=== PATIENT | male | born 1995 | race Caucasian/White ===

== ENCOUNTER 2017-05-19 00:03 | Emergency (ER) | payer OTHER ==
[2017-05-19 00:08] VITALS: RESP 20; TEMP 98.1
--- NOTE | 2017-05-19 01:03 | XR ---
EXAMINATION TYPE: XR chest 2V DATE OF EXAM: 05/19/2017 COMPARISON: NONE HISTORY: Cough TECHNIQUE: Frontal and lateral views of the chest are obtained. FINDINGS: Heart and mediastinum are normal. Lungs are clear. Diaphragm is normal. Bony thorax is int act. IMPRESSION: Normal chest
--- NOTE | 2017-05-19 01:25 | ED ---
General Adult HPI - General Chief complaint: Chest Pain Stated complaint: Chest Pain Time Seen by Provider: 05/19/17 00:31 Source: patient, RN notes reviewed Mode of arrival: wheelchair Limitations: no limitations - History of Present Illness Initial comments: 21 yo male presents to the ER with cc of left sided palpitations. He states that he felt two palpitations and he then went into a panic attack. He was concerned so he thought he should be seen. NO nausea or vomiting. NO SOB. NO fever or chills. He denies any long trips or travel, no hx of blood clots, no other health history. Patient states he is feeling better at this time. He states the feeling of the palpitation have resolved. Patient denies any recent fever, chills, shortness of breath, chest pain, back pain, abdominal pain, nausea vomiting, numbness or tingling, dysuria or hematuria, constipation or diarrhea, headaches or visual changes, or any other current symptoms. - Related Data Home Medications Medication Instructions Recorded Confirmed No Known Home Medications [No 07/02/14 07/02/14 Known Home Medications] Allergies Allergy/AdvReac Type Severity Reaction Status Date / Time No Known Allergies Allergy Verified 05/19/17 00:08 Review of Systems ROS Statement: Those systems with pertinent positive or pertinent negative responses have been documented in the HPI. ROS Other: All systems not noted in ROS Statement are negative. Past Medical History Past Medical History: No Reported History History of Any Multi-Drug Resistant Organisms: None Reported Past Surgical History: No Surgical Hx Reported Past Psychological History: ADD/ADHD, Anxiety, Bipolar Smoking Status: Current every day smoker Past Alcohol Use History: None Reported Past Drug Use History: Marijuana General Exam - General Exam Comments Initial Comments: General: The patient is awake and alert, in no distress, and does not appear acutely ill. Eye: Pupils are equal, round and reactive to light, extra-ocular movements are intact; there is normal conjunctiva bilaterally. No signs of icterus. Ears, nose, mouth and throat: There are moist mucous membranes and no oral lesions. Neck: The neck is supple, there is no tenderness. Cardiovascular: There is a regular rate and rhythm. No murmur, rub or gallop is appreciated. Respiratory: Lungs are clear to auscultation, respirations are non-labored, breath sounds are equal. No wheezes, stridor, rales, or rhonchi. Gastrointestinal: Soft, non-distended, non-tender abdomen without masses or organomegaly noted. There is no rebound or guarding present. No CVA tenderness. Bowel sounds are unremarkable. Back: There is no tenderness to palpation in the midline. There is no obvious deformity. No rashes noted. Musculoskeletal: Normal ROM, no tenderness, There is no pedal edema. There is no calf tenderness or swelling. Sensation intact. Pulses equal bilaterally 2+. Neurological: CN II-XII intact, There are no obvious motor or sensory deficits. Coordination appears grossly intact. Speech is normal. Skin: Skin is warm and dry and no rashes or lesions are noted. Psychiatric: Cooperative, appropriate mood & affect, normal judgment. Limitations: no limitations Course Vital Signs 05/19/17 00:06 Temperature 98.1 F Pulse Rate 118 H Respiratory 20 Rate Blood Pressure 145/77 O2 Sat by Pulse 99 Oximetry EKG Findings - EKG Comments: EKG Findings:: Sinus tachycardia 121 bpm, normal axis, no atopy, no S-T depressions or elevations, Medical Decision Making - Medical Decision Making 21-year-old male presents for an episode of palpitations followed by anxiety. At this time without reservation a heart rate elevated at this time we discussed needs follow-up with family care doctor for this. EKG and chest x- ray is been reviewed. Patient is feeling much better at this time. He does agree that he is feeling anxious when this happened. Patient is agreement this plan all questions have been answered. He will be discharged. Disposition Clinical Impression: Palpitations, Anxiety Disposition: HOME SELF-CARE Condition: Stable Instructions: Palpitations (ED), Anxiety (ED) Additional Instructions: Please use medication as discussed. Please follow up with family doctor if symptoms have not improved over the next two days. Please return to the emergency room if your symptoms increase or worsen or for any other concerns. Referrals: Hina Monahan DO [REFERRING] - 1-2 days Chelsea Thibodeaux MD [STAFF PHYSICIAN] - 1-2 days Time of Disposition: 01:25
[2017-05-19 01:45] VITALS: BP 142/77; PULSE 110
== END 2017-05-19 01:44 | disposition home or self-care (01) ==
LOC: EC 00:03
DX: F41.9 Anxiety disorder, unspecified (principal); R00.2 Palpitations; F17.200 Nicotine dependence, unspecified, uncomplicated
CPT/HCPCS: 71046; 93005; 99285

== ENCOUNTER 2017-05-19 17:07 | Emergency (ER) | payer OTHER ==
--- NOTE | 2017-05-19 18:04 | ED ---
General Adult HPI - General Chief complaint: Dizziness Stated complaint: Anxiety/Dizziness Time Seen by Provider: 05/19/17 17:38 Source: patient, family, RN notes reviewed, old records reviewed Mode of arrival: ambulatory Limitations: no limitations - History of Present Illness Initial comments: 21-year-old male presents for evaluation of palpitations and chest pain. Patient was in the emergency department last night, had an EKG chest x-ray and was discharged. He states he does not feel as well as an adequate evaluation of his symptoms. These were presenting for a second opinion. He has had no symptoms since the time of discharge. No chest pain or shortness of breath. No dizziness or lightheadedness. Patient states he had a preceding cough and cold for the past 4 days. This is been improving. No current nausea vomiting or diarrhea. Patient has no significant past medical history. - Related Data Home Medications Medication Instructions Recorded Confirmed Dm/Acetaminophen/Doxylamine [Vicks 30 ml PO HS PRN 05/19/17 05/19/17 Nyquil Cold & Flu Liquid] Phenylephrine/Dm/Acetaminop/GG 15 ml PO Q6HR PRN 05/19/17 05/19/17 [Vicks Dayquil Severe Cold-Flu] Allergies Allergy/AdvReac Type Severity Reaction Status Date / Time No Known Allergies Allergy Verified 05/19/17 18:12 Review of Systems ROS Statement: Those systems with pertinent positive or pertinent negative responses have been documented in the HPI. ROS Other: All systems not noted in ROS Statement are negative. Past Medical History Past Medical History: No Reported History History of Any Multi-Drug Resistant Organisms: None Reported Past Surgical History: No Surgical Hx Reported Past Psychological History: ADD/ADHD, Anxiety, Bipolar Smoking Status: Current every day smoker Past Alcohol Use History: None Reported Past Drug Use History: Marijuana General Exam Limitations: no limitations General appearance: alert, in no apparent distress Head exam: Present: atraumatic, normocephalic Eye exam: Present: normal appearance, PERRL, EOMI ENT exam: Present: normal exam Neck exam: Present: normal inspection. Absent: tenderness, meningismus Respiratory exam: Present: normal lung sounds bilaterally. Absent: respiratory distress, wheezes Cardiovascular Exam: Present: regular rate, normal rhythm, normal heart sounds GI/Abdominal exam: Present: soft. Absent: distended, tenderness, guarding Extremities exam: Present: normal inspection, full ROM, normal capillary refill. Absent: tenderness, pedal edema, joint swelling, calf tenderness Neurological exam: Present: alert, oriented X3, CN II-XII intact. Absent: motor sensory deficit Psychiatric exam: Present: normal affect, normal mood Skin exam: Present: warm, dry, intact. Absent: cyanosis, diaphoretic Course Vital Signs 05/19/17 17:10 Temperature 97.8 F Pulse Rate 96 Respiratory 16 Rate Blood Pressure 114/75 O2 Sat by Pulse 95 Oximetry EKG Findings - EKG Comments: EKG Findings:: EKG shows normal sinus rhythm with sinus arrhythmia, ventricular rate 77, DE interval 138, castration 80, QTC 420, no ST segment elevation or depression, no signs of ischemia. Medical Decision Making - Medical Decision Making 21-year-old male presenting with palpitations and chest pain which is resolved. He has had URI symptoms. Laboratory studies are obtained, white blood cell count 1.1 mildly elevated likely secondary to viral illness. Normal troponin normal urine normal, marijuana positive and drug screen. Patient's children have similar symptoms. He is encouraged to maintain oral hydration. This is likely a viral infection and will resolve with time. Chest x-ray from yesterday is reviewed and this is negative for pneumonia. - Lab Data Result diagrams: 05/19/17 18:13 05/19/17 18:13 Lab Results 05/19/17 05/19/17 05/19/17 Range/Units 18:13 18:13 18:13 WBC 11.1 H (4.0-11.0) k/uL RBC 5.34 (4.30-5.90) m/uL Hgb 15.5 (13.0-17.5) gm/dL Hct 48.1 (39.0-53.0) % MCV 90.1 (80.0-100.0) fL MCH 29.0 (25.0-35.0) pg MCHC 32.1 (31.0-37.0) g/dL RDW 12.9 (11.5-15.5) % Plt Count 183 (150-450) k/uL Neutrophils % 82 % Lymphocytes % 11 % Monocytes % 5 % Eosinophils % 1 % Basophils % 0 % Neutrophils # 9.1 H (1.3-7.7) k/uL Lymphocytes # 1.2 (1.0-4.8) k/uL Monocytes # 0.5 (0-1.0) k/uL Eosinophils # 0.1 (0-0.7) k/uL Basophils # 0.0 (0-0.2) k/uL Sodium 144 (137-145) mmol/L Potassium 4.2 (3.5-5.1) mmol/L Chloride 108 H (98-107) mmol/L Carbon Dioxide 23 (22-30) mmol/L Anion Gap 13 mmol/L BUN 10 (9-20) mg/dL Creatinine 0.79 (0.66-1.25) mg/dL Est GFR (MDRD) Af Amer >60 (>60 ml/min/1.73 sqM) Est GFR (MDRD) Non-Af >60 (>60 ml/min/1.73 sqM) Glucose 110 H (74-99) mg/dL Calcium 9.5 (8.4-10.2) mg/dL Magnesium 2.0 (1.6-2.3) mg/dL Total Bilirubin 0.4 (0.2-1.3) mg/dL AST 42 (17-59) U/L ALT 46 (21-72) U/L Alkaline Phosphatase 73 (38-126) U/L Troponin I (0.000-0.034) ng/mL Total Protein 7.7 (6.3-8.2) g/dL Albumin 4.1 (3.5-5.0) g/dL Urine Color Yellow Urine Appearance Clear (Clear) Urine pH 6.0 (5.0-8.0) Ur Specific [place] 1.026 (1.001-1.035) Urine Protein 1+ H (Negative) Urine Glucose (UA) Negative (Negative) Urine Ketones Negative (Negative) Urine Blood Negative (Negative) Urine Nitrite Negative (Negative) Urine Bilirubin Negative (Negative) Urine Urobilinogen <2.0 (<2.0) mg/dL Ur Leukocyte Esterase Negative (Negative) Urine RBC 1 (0-5) /hpf Urine WBC 2 (0-5) /hpf Amorphous Sediment Occasional H (None) /hpf Urine Mucus Moderate H (None) /hpf Urine Opiates Screen Not Detected (NotDetected) Ur Oxycodone Screen Not Detected (NotDetected) Urine Methadone Screen Not Detected (NotDetected) Ur Propoxyphene Screen Not Detected (NotDetected) Ur Barbiturates Screen Not Detected (NotDetected) U Tricyclic Antidepress Not Detected (NotDetected) Ur Phencyclidine Scrn Not Detected (NotDetected) Ur Amphetamines Screen Not Detected (NotDetected) U Methamphetamines Scrn Not Detected (NotDetected) U Benzodiazepines Scrn Not Detected (NotDetected) Urine Cocaine Screen Not Detected (NotDetected) U Marijuana (THC) Screen Detected H (NotDetected) 05/19/17 Range/Units 18:13 WBC (4.0-11.0) k/uL RBC (4.30-5.90) m/uL Hgb (13.0-17.5) gm/dL Hct (39.0-53.0) % MCV (80.0-100.0) fL MCH (25.0-35.0) pg MCHC (31.0-37.0) g/dL RDW (11.5-15.5) % Plt Count (150-450) k/uL Neutrophils % % Lymphocytes % % Monocytes % % Eosinophils % % Basophils % % Neutrophils # (1.3-7.7) k/uL Lymphocytes # (1.0-4.8) k/uL Monocytes # (0-1.0) k/uL Eosinophils # (0-0.7) k/uL Basophils # (0-0.2) k/uL Sodium (137-145) mmol/L Potassium (3.5-5.1) mmol/L Chloride (98-107) mmol/L Carbon Dioxide (22-30) mmol/L Anion Gap mmol/L BUN (9-20) mg/dL Creatinine (0.66-1.25) mg/dL Est GFR (MDRD) Af Amer (>60 ml/min/1.73 sqM) Est GFR (MDRD) Non-Af (>60 ml/min/1.73 sqM) Glucose (74-99) mg/dL Calcium (8.4-10.2) mg/dL Magnesium (1.6-2.3) mg/dL Total Bilirubin (0.2-1.3) mg/dL AST (17-59) U/L ALT (21-72) U/L Alkaline Phosphatase (38-126) U/L Troponin I <0.012 (0.000-0.034) ng/mL Total Protein (6.3-8.2) g/dL Albumin (3.5-5.0) g/dL Urine Color Urine Appearance (Clear) Urine pH (5.0-8.0) Ur Specific [place] (1.001-1.035) Urine Protein (Negative) Urine Glucose (UA) (Negative) Urine Ketones (Negative) Urine Blood (Negative) Urine Nitrite (Negative) Urine Bilirubin (Negative) Urine Urobilinogen (<2.0) mg/dL Ur Leukocyte Esterase (Negative) Urine RBC (0-5) /hpf Urine WBC (0-5) /hpf Amorphous Sediment (None) /hpf Urine Mucus (None) /hpf Urine Opiates Screen (NotDetected) Ur Oxycodone Screen (NotDetected) Urine Methadone Screen (NotDetected) Ur Propoxyphene Screen (NotDetected) Ur Barbiturates Screen (NotDetected) U Tricyclic Antidepress (NotDetected) Ur Phencyclidine Scrn (NotDetected) Ur Amphetamines Screen (NotDetected) U Methamphetamines Scrn (NotDetected) U Benzodiazepines Scrn (NotDetected) Urine Cocaine Screen (NotDetected) U Marijuana (THC) Screen (NotDetected) Disposition Clinical Impression: Viral URI Disposition: HOME SELF-CARE Condition: Good Instructions: Viral Syndrome (ED) Referrals: Anita Bravo MD [Primary Care Provider] - 1-2 days Time of Disposition: 19:32
[2017-05-19 18:25] LABS: Basophils % (A) 0 %; Eosinophils # (A) 0.1 k/uL (0-0.7); Eosinophils % (A) 1 %; HCT 48.1 % (39.0-53.0); HGB 15.5 gm/dL (13.0-17.5); Lymphocytes # (A) 1.2 k/uL (1.0-4.8); Lymphocytes % (A) 11 %; MCHC 32.1 g/dL (31.0-37.0); MCV 90.1 fL (80.0-100.0); Mean Platelet Volume 8.3; Monocytes # (A) 0.5 k/uL (0-1.0); Monocytes % (A) 5 %; Neutrophils # (A) 9.1 k/uL (1.3-7.7); Neutrophils % (A) 82 %; Platelet Count 183 k/uL (150-450); RBC 5.34 m/uL (4.30-5.90); RDW 12.9 % (11.5-15.5); WBC 11.1 k/uL (4.0-11.0)
[2017-05-19 18:35] LABS: Amorphous Sediment,Urine Occasional /hpf; Amphetamine Screen,Urine Not Detected (NotDetected); Appearance,Urine Clear (Clear); Barbiturate Screen,Urine Not Detected (NotDetected); Benzodiazepines Screen,Urine Not Detected (NotDetected); Bilirubin,Urine Negative (Negative); Blood,Urine Negative (Negative); Cocaine Screen,Urine Not Detected (NotDetected); Color,Urine Yellow; Glucose,Urine (UA) Negative (Negative); Ketones,Urine Negative (Negative); Leukocyte Esterase,Urine Negative (Negative); Methadone Screen, Urine Not Detected (NotDetected); Mucus,Urine Moderate /hpf; Nitrite,Urine Negative (Negative); Opiate Screen,Urine Not Detected (NotDetected); Oxycodone Screen, Urine Not Detected (NotDetected); Phencyclidine Screen,Urine Not Detected (NotDetected); Protein,Urine 1+ (Negative); RBC,Urine 1 /hpf (0-5); Specific Gravity,Urine 1.026 (1.001-1.035); Tricyclic Antidepressant,Urine Not Detected (NotDetected); Urn Cannabinoid Scrn Detected (NotDetected); Urobilinogen,Urine <2.0 mg/dL (<2.0); WBC,Urine 2 /hpf (0-5)
[2017-05-19 18:37] LABS: ALT 46 U/L (21-72); AST 42 U/L (17-59); Albumin 4.1 g/dL (3.5-5.0); Alkaline Phosphatase 73 U/L (38-126); Anion Gap 13 mmol/L; Blood Urea Nitrogen 10 mg/dL (9-20); Calcium 9.5 mg/dL (8.4-10.2); Carbon Dioxide 23 mmol/L (22-30); Chloride 108 mmol/L (98-107); Glucose 110 mg/dL (74-99); Potassium 4.2 mmol/L (3.5-5.1); Sodium 144 mmol/L (137-145); Total Bilirubin 0.4 mg/dL (0.2-1.3); Total Protein 7.7 g/dL (6.3-8.2)
[2017-05-19 19:55] VITALS: BP 154/68; PULSE 90; RESP 18; TEMP 98
== END 2017-05-19 19:54 | disposition home or self-care (01) ==
LOC: EC 17:07
DX: J06.9 Acute upper respiratory infection, unspecified (principal); D72.829 Elevated white blood cell count, unspecified; R00.2 Palpitations; F17.200 Nicotine dependence, unspecified, uncomplicated
CPT/HCPCS: 36415; 80053; 80306; 81001; 83735; 84484; 85025; 93005; 99284

== ENCOUNTER 2017-05-20 23:08 | Emergency (ER) | payer OTHER ==
[2017-05-20 23:14] VITALS: TEMP 98
--- NOTE | 2017-05-21 00:17 | ED ---
General Adult HPI - General Chief complaint: Dizziness Stated complaint: Dizziness Time Seen by Provider: 05/20/17 23:47 Source: patient, family, RN notes reviewed, old records reviewed Mode of arrival: ambulatory Limitations: no limitations - History of Present Illness Initial comments: Chief complaint history of present illness this is a 21-year-old male who admittedly states that he becomes anxious when he senses a palpitation. Lately he's been drinking our drinks, the last was 4 days ago as well as using DayQuil which has phenylephrine as well as compounds. We did discuss accidentally over self-medicating. He's been doing this because of cold-type symptoms. Denies fevers today. No chest pain no nausea no radiation of discomfort. The patient' s been evaluated twice in the last 36 hours. He does have a history of bipolar disorder and anxiety. - Related Data Home Medications Medication Instructions Recorded Confirmed Dm/Acetaminophen/Doxylamine [Vicks 30 ml PO HS PRN 05/19/17 05/19/17 Nyquil Cold & Flu Liquid] Phenylephrine/Dm/Acetaminop/GG 15 ml PO Q6HR PRN 05/19/17 05/19/17 [Vicks Dayquil Severe Cold-Flu] Allergies Allergy/AdvReac Type Severity Reaction Status Date / Time No Known Allergies Allergy Verified 05/20/17 23:13 Review of Systems ROS Statement: Those systems with pertinent positive or pertinent negative responses have been documented in the HPI. review of systems. No headache or visual acuity changes no chest pain or shortness of breath this time no GI/ problems no complaint of any nausea vomiting or diarrhea. Patient is unemployed. Denies any injury lifting or injuries at home. All systems are reviewed.Past medical problems significant for ADD and ADHD, anxiety and bipolar disorder. He has not been on any medications for prolonged period of time. Patient's every day smoker including marijuana. Family history noncontributory. ROS Other: All systems not noted in ROS Statement are negative. Past Medical History Past Medical History: No Reported History History of Any Multi-Drug Resistant Organisms: None Reported Past Surgical History: No Surgical Hx Reported Past Psychological History: ADD/ADHD, Anxiety, Bipolar Smoking Status: Current every day smoker Past Alcohol Use History: None Reported Past Drug Use History: Marijuana General Exam - General Exam Comments Initial Comments: General: The patient is awake and alert, in no distress, and does not appear acutely ill.patient's sensations of occasional palpitations happen erratically. These do tend to precipitate anxiety and his part. Vital signs shows temperature 98.0 pulse 84 respiratory rate 20 pulse ox 97% room air blood pressure 130/76 Eye: Pupils are equal, round and reactive to light, extra-ocular movements are intact ; there is normal conjunctiva bilaterally. No signs of icterus. Ears, nose, mouth and throat: There are moist mucous membranes and no oral lesions. Neck: The neck is supple,no anterior lymphadenopathy. Thyroid not enlarged. Cardiovascular: There is a regular rate and rhythm. No murmur, rub or gallop is appreciated. Respiratory: Lungs are clear to auscultation, respirations are non-labored, breath sounds are equal. No wheezes, stridor, rales, or rhonchi. Gastrointestinal: Soft, non-distended, non-tender abdomen without masses or organomegaly noted. There is no rebound or guarding present. No CVA tenderness. Bowel sounds are unremarkable.occasional complaints of GERD. Back: There is no tenderness to palpation in the midline. There is no obvious deformity. No rashes noted. Musculoskeletal: Normal ROM, no tenderness, There is no pedal edema. There is no calf tenderness or swelling. Sensation intact. Pulses equal bilaterally 2+. Neurological: no focal or lateralizing findings Skin: Skin is warm and dry and no rashes or lesions are noted. Psychiatric: Cooperative, appropriate mood & affect, history of anxiety and bipolar disorder. Not currently on any medications. Not complaining of depression. Limitations: no limitations Course Vital Signs 05/20/17 05/21/17 05/21/17 23:10 00:16 00:18 Temperature 98.0 F 98.0 F Pulse Rate 84 Pulse Rate [ 88 Sitting] Pulse Rate [ Standing] Pulse Rate [ 77 Supine] Respiratory 20 18 18 Rate Blood Pressure 138/76 Blood Pressure 137/64 [Sitting] Blood Pressure [Standing] Blood Pressure 135/65 [Supine] O2 Sat by Pulse 97 Oximetry 05/21/17 00:21 Temperature Pulse Rate Pulse Rate [ Sitting] Pulse Rate [ 100 Standing] Pulse Rate [ Supine] Respiratory 18 Rate Blood Pressure Blood Pressure [Sitting] Blood Pressure 132/61 [Standing] Blood Pressure [Supine] O2 Sat by Pulse Oximetry EKG Findings - EKG Comments: EKG Findings:: EKG was done and reviewed at 2335 showing sinus tachycardia rate 101. No acute ST elevation no ectopy no ischemic changes. [place] interval was 1: 30 QRS 80 QT 346 QTc 448. This EKG was compared to his very similar to one done on 2917. Dr. Marcos Medical Decision Making - Medical Decision Making Medical decision making; this is a 21-year-old male here with family. The patient's been seen 3 times on emergency room for some anxiety issues with occasional palpitations. Is also been found out that he has on occasion use the [id number] stimulant drinks or energy drinks. He is also taking medications including phenylephrine for cold-type symptoms. We did discuss the possibility of these causing some palpitations and with his pre-existing problems with anxiety and bipolar disorder may exacerbate those feelings. Patient advised not to use any those medications. He is to use simple things such as Tylenol or I Advil for muscle aches and pains fever should he have and Benadryl. Advised to talk to his family doctor. If he does not have a family doctor , he should follow-up with Dr. Bravo, marketing information coordinator for the emergency room. flu test negative today. He has very had multiple tests done in the past 24 hours all of which were normal except for positive urine triage for marijuana. - Lab Data Lab Results 05/20/17 Range/Units 23:46 Influenza Type A RNA Not Detected (Not Detectd) Influenza Type B (PCR) Not Detected (Not Detectd) Disposition Clinical Impression: Adverse reaction to [id number] medication Disposition: HOME SELF-CARE Condition: Fair Instructions: Dizziness (ED) Additional Instructions: increase fluids, use Benadryl only. Follow-up with your family physician. Referrals: None,Stated [Primary Care Provider] - 1-2 days Anita Bravo MD [REFERRING] - 1-2 days Time of Disposition: 00:42
[2017-05-21 00:22] VITALS: RESP 18
[2017-05-21 00:23] VITALS: BP 132/61; PULSE 100
== END 2017-05-21 00:49 | disposition home or self-care (01) ==
LOC: EC 23:08
DX: R42 Dizziness and giddiness (principal); T44.4X5A Adverse effect of predominantly alpha-adrenoreceptor agonists, initial encounter; R00.0 Tachycardia, unspecified; F17.200 Nicotine dependence, unspecified, uncomplicated
CPT/HCPCS: 87502; 93005; 99284

== ENCOUNTER 2017-05-31 00:32 | Emergency (ER) | payer OTHER ==
[2017-05-31 00:51] VITALS: RESP 18
--- NOTE | 2017-05-31 01:47 | ED ---
Chest Pain HPI - General Chief Complaint: Chest Pain Stated Complaint: Tachy/Dizzy/Chest Pain Time Seen by Provider: 05/31/17 01:10 Source: patient, RN notes reviewed Mode of arrival: ambulatory Limitations: no limitations - History of Present Illness Initial Comments: 21-year-old male presents emergency Department with chief complaint of palpitations, chest discomfort. Patient's had multiple ER visits for similar things. He states once he starts having symptoms she starts getting worked up states that symptoms get worse. Patient states that he can't calm down. Patient is currently trying to make bicep modifications stop [id number] medications other than Benadryl and states that he has not been drinking energy drinks. Patient states that he had some fluttering in his right side of his chest. Denies any shortness breath denies any nausea vomiting. - Related Data Home Medications Medication Instructions Recorded Confirmed Dm/Acetaminophen/Doxylamine [Vicks 30 ml PO HS PRN 05/19/17 05/19/17 Nyquil Cold & Flu Liquid] Phenylephrine/Dm/Acetaminop/GG 15 ml PO Q6HR PRN 05/19/17 05/19/17 [Vicks Dayquil Severe Cold-Flu] Previous Rx's Medication Instructions Recorded ALPRAZolam [Xanax] 0.25 mg PO DAILY PRN #5 tab 05/31/17 Allergies Allergy/AdvReac Type Severity Reaction Status Date / Time No Known Allergies Allergy Verified 05/31/17 00:48 Review of Systems ROS Statement: Those systems with pertinent positive or pertinent negative responses have been documented in the HPI. ROS Other: All systems not noted in ROS Statement are negative. EKG Findings - EKG Comments: EKG Findings:: EKG performed at 0:57 sinus tachycardia with rate of 109 MT 146 QRS 78 QT/QTC 344/463 Past Medical History Past Medical History: No Reported History History of Any Multi-Drug Resistant Organisms: None Reported Past Surgical History: No Surgical Hx Reported Past Psychological History: ADD/ADHD, Anxiety, Bipolar Smoking Status: Current every day smoker Past Alcohol Use History: None Reported Past Drug Use History: Marijuana General Exam Limitations: no limitations Course Vital Signs 05/31/17 00:49 Temperature 98.7 F Pulse Rate 106 H Respiratory 18 Rate Blood Pressure 133/67 O2 Sat by Pulse 97 Oximetry Chest Pain MDM - MDM 21-year-old male presented for anxiety related issues. Patient's EKG is unchanged. Patient states she is symptom-free. I did explain that he'll be given 5 tablets of Xanax if symptoms arise he can take as he needs a follow-up with primary care physician. He does agree to this plan. Disposition Clinical Impression: Anxiety Disposition: HOME SELF-CARE Condition: Stable Instructions: Anxiety (ED) Additional Instructions: Please return to the Emergency Department if symptoms worsen or any other concerns. Prescriptions: ALPRAZolam [Xanax] 0.25 mg PO DAILY PRN #5 tab PRN Reason: Anxiety Referrals: None,Stated [Primary Care Provider] - 1-2 days Time of Disposition: 01:47
[2017-05-31 02:00] VITALS: BP 140/70; PULSE 104; TEMP 98.8
--- NOTE | 2017-06-01 06:21 | CDI ---
Documentation Clarification OP Dear MELISSA Larry, Please do addendum to ED report for missing Physical examination. Thank you, [place] civil rights attorney. if you have any questions,please contact esthetician and manager medical spa at [phone]. [facility]
== END 2017-05-31 01:59 | disposition home or self-care (01) ==
LOC: EC 00:32
DX: F41.9 Anxiety disorder, unspecified (principal); R07.89 Other chest pain; R42 Dizziness and giddiness; R00.2 Palpitations; R00.0 Tachycardia, unspecified; F90.9 Attention-deficit hyperactivity disorder, unspecified type; F31.9 Bipolar disorder, unspecified; F17.200 Nicotine dependence, unspecified, uncomplicated
CPT/HCPCS: 93005; 99284

== ENCOUNTER 2018-04-05 20:56 | Emergency (ER) | payer OTHER ==
[2018-04-05 21:04] VITALS: RESP 16; TEMP 98.8
--- NOTE | 2018-04-05 21:34 | ED ---
Chest Pain HPI - General Chief Complaint: Chest Pain Stated Complaint: Chest pain Time Seen by Provider: 04/05/18 21:31 Source: patient Mode of arrival: ambulatory Limitations: no limitations - History of Present Illness Initial Comments: 22-year-old male past medical history of 90% today for chief complaint chest pain and left arm pain. Patient states her weeks has had chest pain that comes and goes he states inside of the chest and he is unable to describe chest pain characteristic clearly. He states is sharp. Patient states that today he felt a pain in his left arm, he states this pain came and went about 2 times today, sharp in characterisitc and not reproducible to tough. Patient states he did not notice pattern of the chest pain at time of arm pain however occasional sharp chest pain has been ongoing for a few weeks. He states he does not currently have any chest pain. He denies any current left arm pain. He denies any patterns, denies noticing a chest pain increasing with exertion. Patient denies any cough, fever, chills, night sweats, recent travel, recent viral illness, sore throat, lower extremity edema, nausea, vomiting, abdominal pain, history of IV drug use, history of cocaine use, back pain, dyspnea, wheeze, history of chronic steroid use or HIV, history of autoimmune disease. Patient is every day smoker. Remainder was negative. Upon arrival patient is well- appearing, vital signs within normal limits. There are no signs of acute distress. Patient is not appear ill. - Related Data Home Medications Medication Instructions Recorded Confirmed No Known Home Medications 04/05/18 04/05/18 Allergies Allergy/AdvReac Type Severity Reaction Status Date / Time No Known Allergies Allergy Verified 04/05/18 21:32 Review of Systems ROS Statement: Those systems with pertinent positive or pertinent negative responses have been documented in the HPI. ROS Other: All systems not noted in ROS Statement are negative. Constitutional: Denies: fever, chills, night sweats ENT: Denies: ear pain, throat pain Respiratory: Denies: cough, dyspnea, wheezes, hemoptysis, stridor Cardiovascular: Reports: chest pain. Denies: palpitations, dyspnea on exertion , orthopnea, edema, syncope Endocrine: Denies: fatigue Gastrointestinal: Denies: abdominal pain, nausea, vomiting, diarrhea, constipation, hematemesis, melena, hematochezia Genitourinary: Denies: urgency, dysuria, frequency, hematuria Musculoskeletal: Reports: other (Left arm pain shooting on and off times twice today). Denies: back pain Skin: Denies: rash, lesions Neurological: Denies: headache, confusion, abnormal gait, vertigo EKG Findings - EKG Comments: EKG Findings:: A 12-lead EKG was performed and shows the following: Rate is 77bpm, and rhythm is normal sinus sinus arrhythmia. There are normal QRS complexes and normal R-wave progression. ST segments have no elevation or depression, and [place] segments appear normal. Past Medical History Past Medical History: No Reported History History of Any Multi-Drug Resistant Organisms: None Reported Past Surgical History: No Surgical Hx Reported Past Psychological History: ADD/ADHD, Anxiety, Bipolar Smoking Status: Current every day smoker Past Alcohol Use History: None Reported Past Drug Use History: Marijuana General Exam - General Exam Comments Initial Comments: General: The patient is awake and alert, in no distress, and does not appear acutely ill. Eye: Pupils are equal, round and reactive to light, extra-ocular movements are intact. No nystagmus. There is normal conjunctiva bilaterally. No signs of icterus. Ears, nose, mouth and throat: There are moist mucous membranes and no oral lesions. Oropharynx is nonerythematous. Tongue pink Neck: The neck is supple, there is no tenderness or JVD. Cardiovascular: There is a regular rate and rhythm. No murmur, rub or gallop is appreciated. Respiratory: Lungs are clear to auscultation, respirations are non-labored, breath sounds are equal. No wheezes, stridor, rales, or rhonchi. Gastrointestinal: Soft, non-distended, non-tender abdomen without masses or organomegaly noted. There is no rebound or guarding present. No CVA tenderness. Bowel sounds are unremarkable. Musculoskeletal: Normal ROM, no tenderness. Strength 5/5. Sensation intact. Pulses equal bilaterally 2+. Neurological: A&O x 3. CN II-XII intact, There are no obvious motor or sensory deficits. Coordination appears grossly intact. Speech is normal. Skin: Skin is warm and dry and no rashes or lesions are noted. No lower extremity edema. Psychiatric: Cooperative, appropriate mood & affect, normal judgment. Limitations: no limitations Course Vital Signs 04/05/18 04/05/18 21:00 23:40 Temperature 98.8 F Pulse Rate 92 82 Respiratory 16 16 Rate Blood Pressure 121/80 120/73 O2 Sat by Pulse 93 L 97 Oximetry Chest Pain MDM - MDM Pt denies current chest pain or left arm pain. Patient states he was concerned because he has heard heart attacks have chest pain and left arm pain. Patient denies any other associated symptoms. Patient appears well, vital signs within normal. EKG negative. Chest x-ray negative for any cardiomegaly. No signs of heart failure on examination. Troponin negative. Remainder of laboratory findings unremarkable. Patient appears well. Patient denies history of connective tissue disease, history of sudden in family. Given absence of symptoms, history not concerning for typical chest pain. I feel pt is stable for discharge with primary care f/u. Pt is agreeable with plan. Pt discharged in stable condition after discussing all return parameters at length patient verbalizes understanding. In addition discussed the case with attending provider who agreed impression and plan. Patient discharged in stable condition Disposition Clinical Impression: Atypical chest pain Disposition: HOME SELF-CARE Condition: Good Instructions: Chest Pain (ED) Additional Instructions: Please use medication as discussed. Please follow-up with family doctor in the next 2 days for further evaluation/concerns. Please return to emergency room if the symptoms increase or worsen or for any other concerns. Is patient prescribed a controlled substance at d/c from ED?: No Referrals: None,Stated [Primary Care Provider] - 1-2 days [facility] [NON-STAFF] - 1-2 days Time of Disposition: 23:34
[2018-04-05 22:03] LABS: Basophils # (A) 0.1 k/uL (0-0.2); Basophils % (A) 1 %; Eosinophils # (A) 0.4 k/uL (0-0.7); Eosinophils % (A) 6 %; HCT 51.8 % (39.0-53.0); HGB 17.2 gm/dL (13.0-17.5); Lymphocytes # (A) 1.5 k/uL (1.0-4.8); Lymphocytes % (A) 19 %; MCH 29.9 pg (25.0-35.0); MCHC 33.2 g/dL (31.0-37.0); MCV 89.9 fL (80.0-100.0); Mean Platelet Volume 8.7; Monocytes # (A) 0.4 k/uL (0-1.0); Monocytes % (A) 6 %; Neutrophils # (A) 5.5 k/uL (1.3-7.7); Neutrophils % (A) 68 %; Platelet Count 187 k/uL (150-450); RBC 5.76 m/uL (4.30-5.90); RDW 13.5 % (11.5-15.5)
--- NOTE | 2018-04-05 22:09 | XR ---
EXAMINATION TYPE: XR chest 2V DATE OF EXAM: 04/05/2018 COMPARISON: May 19, 2017 HISTORY: Chest pain TECHNIQUE: Frontal and lateral views of the chest are obtained. FINDINGS: Heart and mediastinum are normal. Lungs are clear. Diaphragm is normal. Bony thorax appear s normal. IMPRESSION: Normal chest. No change.
[2018-04-05 22:14] LABS: ALT 27 U/L (21-72); AST 19 U/L (17-59); Albumin 4.3 g/dL (3.5-5.0); Alkaline Phosphatase 59 U/L (38-126); Anion Gap 11 mmol/L; Blood Urea Nitrogen 11 mg/dL (9-20); Calcium 9.6 mg/dL (8.4-10.2); Carbon Dioxide 23 mmol/L (22-30); Chloride 107 mmol/L (98-107); Glucose 85 mg/dL (74-99); Potassium 4.2 mmol/L (3.5-5.1); Sodium 141 mmol/L (137-145); Total Bilirubin 0.4 mg/dL (0.2-1.3); Total Protein 7.4 g/dL (6.3-8.2)
[2018-04-05 22:30] LABS: Creatine Kinase 89 U/L (55-170)
[2018-04-05 22:44] LABS: Creatine Kinase MB 0.2 ng/mL (0.0-2.4); Troponin I <0.012 ng/mL (0.000-0.034)
[2018-04-05 23:42] VITALS: BP 120/73; PULSE 82
== END 2018-04-06 | disposition home or self-care (01) ==
LOC: EC 20:56
DX: R07.89 Other chest pain (principal); F17.200 Nicotine dependence, unspecified, uncomplicated
CPT/HCPCS: 36415; 71046; 80053; 82550; 82553; 84484; 85025; 85379; 93005; 99285

== ENCOUNTER 2018-10-16 19:11 | Emergency (ER) | payer OTHER ==
[2018-10-16 19:16] VITALS: BP 109/71; PULSE 72; RESP 18; TEMP 98.2
[2018-10-16] MEDS ORDERED: LORazepam 1 MG TAB PO STA (19:44)
--- NOTE | 2018-10-16 19:44 | ED ---
General Adult HPI - General Chief complaint: Chest Pain Stated complaint: Chest and back pain Time Seen by Provider: 10/16/18 19:20 Source: patient, RN notes reviewed, old records reviewed Mode of arrival: ambulatory Limitations: no limitations - History of Present Illness Initial comments: 23-year-old male patient with past history of anxiety, multiple evaluations for chest pain just to ED for evaluation of transient chest pain. Patient reports that prior to presentation he is feeling very anxious, had about 1 minute of substernal chest pain as well as some lightheadedness. Patient reports that this passed shortly after. Patient is currently feeling very anxious. Patient however denies any physical complaints, denies any chest pain shortness of breath abdominal pain nausea vomiting diarrhea. Denies any headache, changes in vision, paresthesias. Patient believes that this is related to anxiety as he has been in the past. Systemic: Pt denies fatigue, fever/chills, rash. Pt denies weakness, night sweats, weight loss. Neuro: Pt denies headache, visual disturbances, syncope or pre-syncope. HEENT: Pt denies ocular discharge or irritation, otalgia, rhinorrhea, pharyngitis or notable lymphadenopathy. Cardiopulmonary: Pt denies chest pain, SOB, heart palpitations, dyspnea on exertion. Abdominal/GI: Pt denies abdominal pain, n/v/d. : Pt denies dysuria, burning w/ urination, frequency/urgency. Denies new onset urinary or bowel incontinence. MSK: Pt denies myalgia, loss of strength or function in extremities. Neuro: Pt denies new onset weakness, paresthesias. - Related Data Home Medications Medication Instructions Recorded Confirmed No Known Home Medications 04/05/18 07/01/18 Allergies Allergy/AdvReac Type Severity Reaction Status Date / Time No Known Allergies Allergy Verified 10/16/18 19:16 Review of Systems ROS Statement: Those systems with pertinent positive or pertinent negative responses have been documented in the HPI. ROS Other: All systems not noted in ROS Statement are negative. Past Medical History Past Medical History: No Reported History History of Any Multi-Drug Resistant Organisms: None Reported Past Surgical History: No Surgical Hx Reported Past Psychological History: ADD/ADHD, Anxiety, Bipolar Smoking Status: Current every day smoker Past Alcohol Use History: None Reported Past Drug Use History: Marijuana General Exam - General Exam Comments Initial Comments: Constitutional: NAD, AOX3, Pt has pleasant affect. HEENT: NC/AT, trachea midline, neck supple, no lymphadenopathy. Posterior pharynx non erythematous, without exudates. External ears appear normal, without discharge. Mucous membranes moist. Eyes PERRLA, EOM intact. There is no scleral icterus. No pallor noted. Cardiopulmonary: RRR, no murmurs, rubs or gallops, no JVD noted. Lungs CTAB in anterior and posterior tillman. No peripheral edema. Abdominal exam: Abdomen soft and non-distended. Abdomen non-tender to palpation in all 4 quadrants. Bowel sounds active in LLQ. No hepatosplenomegaly. No ecchymosis Neuro: CN II-XII intact. No nuchal rigidity. No raccon eyes, no bautista sign, no hemotympanum. No cervical spinal tenderness. NIH 0. MSK: No posterior calf tenderness bilaterally, homans sign negative bilaterally. Posterior tibialis and radial pulse +2 bilaterally. Sensation intact in upper and lower extremities. Full active ROM in upper and lower extremities, 5/5 stregnth. Limitations: no limitations Course Vital Signs 10/16/18 19:14 Temperature 98.2 F Pulse Rate 72 Respiratory 18 Rate Blood Pressure 109/71 O2 Sat by Pulse 97 Oximetry Medical Decision Making - Medical Decision Making 23-year-old male patient with past history of anxiety, multiple evaluations for chest pain just to ED for evaluation of transient chest pain. Patient reports that prior to presentation he is feeling very anxious, had about 1 minute of substernal chest pain as well as some lightheadedness. Patient reports that this passed shortly after. Patient is currently feeling very anxious. Patient however denies any physical complaints, denies any chest pain shortness of breath abdominal pain nausea vomiting diarrhea. Denies any headache, changes in vision, paresthesias. Patient believes that this is related to anxiety as he has been in the past. Patient vital signs stable, afebrile. This is anacute pathology. Splay any change from prior. No concern for acute ischemia. Chest revealed no acute process. Patient is asymptomatic. Patient was discharged, follow-up with primary care provider, otalgia physician worsen. Case discussed with Dr. Chamorro. - EKG Data -: EKG Interpreted by Me (and Dr. Chamorro ) EKG Comments: Ventricular rate 62,. For 140, QRS 82, QT/QTc 426/432. Normal sinus rhythm, normal EKG, no concern for acute ischemia. Disposition Clinical Impression: Atypical chest pain Disposition: HOME SELF-CARE Condition: Stable Instructions (If sedation given, give patient instructions): Chest Pain (ED) Additional Instructions: Patient to adhere to previously discussed treatment plan and will take medication(s) as directed. Patient to follow up with PCP in 1-2 days. Patient to return to ED if symptoms do not improve. Follow-up with primary care provider tomorrow. Return to ER if condition worsens in any way. Is patient prescribed a controlled substance at d/c from ED?: No Referrals: None,Stated [Primary Care Provider] - 1-2 days [facility] [NON-STAFF] - 1-2 days
--- NOTE | 2018-10-16 20:17 | XR ---
EXAMINATION: XR chest 2V DATE AND TIME: 10/16/2018 7:30 PM CLINICAL INDICATION: PHH; Pain TECHNIQUE: Departmental protocol COMPARISON: 07/01/2018 FINDINGS: The lungs are clear. The pleural spaces are negative. The cardiac silhouette is not enlarged. The remainder of the mediastinal silhouette is unremarkable. The skeletal structures and soft tissues are negative for acute findings. IMPRESSION: NO ACUTE PROCESS.
== END 2018-10-16 20:35 | disposition home or self-care (01) ==
LOC: EC 19:11
DX: R07.89 Other chest pain (principal); R42 Dizziness and giddiness; F17.200 Nicotine dependence, unspecified, uncomplicated
CPT/HCPCS: 71046; 93005; 99285

== ENCOUNTER 2018-11-21 19:40 | Emergency (ER) | payer OTHER ==
[2018-11-21 20:04] VITALS: BP 117/77; PULSE 75; RESP 20; TEMP 98.1
[2018-11-21] MEDS ORDERED: KETOROLAC 60 MG/2 ML VIAL IM STA (20:22)
[2018-11-21] MEDS ORDERED: ACET/COD 300 MG/30 MG STARTER PACK 6 TAB BTL PO STA (20:22)
--- NOTE | 2018-11-21 20:26 | ED ---
ENT HPI - General Chief complaint: Dental/Oral Stated complaint: Abscess Tooth Time Seen by Provider: 11/21/18 20:10 Source: patient Mode of arrival: ambulatory Limitations: no limitations - History of Present Illness Initial comments: Patient is a 23-year-old male presenting to the emergency Department with complaints of a dental abscess 1 day. Patient states the pain and swelling started this morning and has progressed. Patient states he did go to [facility] earlier today and was given penicillin and naproxen. Patient states the pain is still increasing so he came for another opinion. Patient denies fever, chills, cough, trouble swallowing, trouble breathing. Patient states he does not have a dentist but has referral for one call them in the morning. No other complaints at this time. - Related Data Home Medications Medication Instructions Recorded Confirmed No Known Home Medications 04/05/18 07/01/18 Allergies Allergy/AdvReac Type Severity Reaction Status Date / Time No Known Allergies Allergy Verified 10/16/18 19:16 Review of Systems ROS Statement: Those systems with pertinent positive or pertinent negative responses have been documented in the HPI. ROS Other: All systems not noted in ROS Statement are negative. Past Medical History Past Medical History: No Reported History History of Any Multi-Drug Resistant Organisms: None Reported Past Surgical History: No Surgical Hx Reported Past Psychological History: ADD/ADHD, Anxiety, Bipolar Smoking Status: Current every day smoker Past Alcohol Use History: Rare Past Drug Use History: None Reported General Exam - General Exam Comments Initial Comments: GENERAL: Well-appearing, well-nourished and in no acute distress, patient appears uncomfortable. HEAD: Atraumatic, normocephalic. EYES: Pupils equal round and reactive to light, extraocular movements intact, sclera anicteric, conjunctiva are normal. ENT: TMs normal, nares patent, oropharynx clear without exudates. Moist mucous membranes. Patient has swelling to the right jawline. Pain with palpation of the right jaw, lower right gumline. Gumline is erythematous. No abscess seen. NECK: Normal range of motion, supple without lymphadenopathy or JVD. LUNGS: Breath sounds clear to auscultation bilaterally and equal. No wheezes rales or rhonchi. HEART: Regular rate and rhythm without murmurs, rubs or gallops. ABDOMEN: Soft, nontender, normoactive bowel sounds. No guarding, no rebound. No masses appreciated. : Deferred EXTREMITIES: Normal range of motion, no pitting or edema. No clubbing or cyanosis. NEUROLOGICAL: Cranial nerves II through XII grossly intact. Normal speech, normal gait. PSYCH: Normal mood, normal affect. SKIN: Warm, Dry, normal turgor, no rashes or lesions noted. Limitations: no limitations Course Vital Signs 11/21/18 20:00 Temperature 98.1 F Pulse Rate 75 Respiratory 20 Rate Blood Pressure 117/77 O2 Sat by Pulse 96 Oximetry Medical Decision Making - Medical Decision Making Patient is a 23-year-old male presenting with a dental abscess on the right lower jawline. Patient does have pain and swelling in the area. Patient to go to [facility] earlier today and received penicillin as well as the proximal in. Patient states it is not helping at this time. He says vital signs are stable, afebrile. Patient denies fever, chills, difficulty breathing, difficulty swallowing. There is discussed with patient that he needs to continue with the penicillin and follow-up with his dentist tomorrow. Patient was given a Toradol injection and Tylenol 3 starter pack. Patient will be discharged home. Return parameters were discussed with the patient he verbalizes understanding. Patient will contact dentist in the morning. Case discussed with Dr. Ugalde. Disposition Clinical Impression: Tooth abscess Disposition: HOME SELF-CARE Condition: Stable Instructions (If sedation given, give patient instructions): Dental Abscess (ED) Additional Instructions: Please return to the Emergency Department if symptoms worsen or any other concerns. Follow-up with dentist tomorrow morning. Continue taking penicillin as prescribed as well as pain medicine Is patient prescribed a controlled substance at d/c from ED?: No Referrals: Brian De Anda MD [Primary Care Provider] - 1-2 days
== END 2018-11-21 20:34 | disposition home or self-care (01) ==
LOC: EC 19:40
DX: K04.7 Periapical abscess without sinus (principal); F17.200 Nicotine dependence, unspecified, uncomplicated
CPT/HCPCS: 99283; 96372; J1885

== ENCOUNTER 2018-11-23 22:35 | Emergency (ER) | payer OTHER ==
[2018-11-23 22:38] VITALS: RESP 18; TEMP 98.4
[2018-11-23] MEDS ORDERED: MORPHINE SULFATE 4 MG/ML SYRINGE IM STA (22:50)
[2018-11-23] MEDS ORDERED: CLINDAMYCIN 150 MG CAP PO STA (22:50)
[2018-11-23] MEDS ORDERED: KETOROLAC 30 MG/ML 1 ML VIAL IM STA (22:50)
[2018-11-23] MEDS ORDERED: LIDOCAINE VISCOUS 2% 15 ML CUP MUCOUS MEM ONE (22:50)
[2018-11-23] MEDS ORDERED: HYDROcodone/APAP 5-325MG 1 EACH TAB PO STA (23:45)
--- NOTE | 2018-11-23 23:45 | ED ---
General Adult HPI - General Chief complaint: Dental/Oral Stated complaint: dental pain Time Seen by Provider: 11/23/18 22:40 Source: patient Mode of arrival: ambulatory Limitations: no limitations - History of Present Illness Initial comments: 23-year-old male patient presented to the emergency department today for evaluation of right lower dental pain and facial swelling. Patient states he was seen and evaluated 3 days ago diagnosed with a dental abscess. Patient states he has been taking penicillin and ibuprofen without much relief. Denies any fever or chills. Denies any trismus or difficulty swallowing. Denies any nausea or vomiting. Patient does have an appointment with dentistry on Monday. Patient states pain became too bad so he presented here for further evaluation. Patient denies any recent rash, shortness breath, chest pain, abdominal pain, diarrhea, constipation, back pain, numbness, tingling, dizziness, weakness, hematuria, dysuria, urinary urgency, urinary frequency, headache, visual changes, or any other complaints. - Related Data Previous Rx's Medication Instructions Recorded Clindamycin HCl [Cleocin] 450 mg PO Q8H #90 cap 11/23/18 Allergies Allergy/AdvReac Type Severity Reaction Status Date / Time No Known Allergies Allergy Verified 11/23/18 22:50 Review of Systems ROS Statement: Those systems with pertinent positive or pertinent negative responses have been documented in the HPI. ROS Other: All systems not noted in ROS Statement are negative. Past Medical History Past Medical History: No Reported History History of Any Multi-Drug Resistant Organisms: None Reported Past Surgical History: No Surgical Hx Reported Past Psychological History: ADD/ADHD, Anxiety, Bipolar Smoking Status: Current every day smoker Past Alcohol Use History: Rare Past Drug Use History: None Reported General Exam Limitations: no limitations General appearance: alert, in no apparent distress, other (Physical well-develop ed, well-nourished adult male patient in mild distress related to pain. Vital signs upon presentation are temperature 98.4F, pulse 90, respirations 18, blood pressure 137/84, pulse ox 97% on room air.) Eye exam: Present: normal appearance, PERRL, EOMI. Absent: scleral icterus, conjunctival injection, periorbital swelling ENT exam: Present: normal oropharynx, mucous membranes moist, other (Right facial swelling, there is evidence for right lower intraoral abscess. There is fluctuants. No current drainage.). Absent: normal exam Respiratory exam: Present: normal lung sounds bilaterally. Absent: respiratory distress, wheezes, rales, rhonchi, stridor Cardiovascular Exam: Present: regular rate, normal rhythm, normal heart sounds. Absent: systolic murmur, diastolic murmur, rubs, gallop, clicks Neurological exam: Present: alert, oriented X3, CN II-XII intact Psychiatric exam: Present: normal affect, normal mood Skin exam: Present: warm, dry, intact, normal color. Absent: rash Course Vital Signs 11/23/18 11/24/18 22:36 00:03 Temperature 98.4 F Pulse Rate 90 76 Respiratory 18 18 Rate Blood Pressure 137/84 133/80 O2 Sat by Pulse 97 96 Oximetry Medical Decision Making - Medical Decision Making 23-year-old male patient presented to the emergency department today for evaluation of right facial swelling and dental pain. Physical examination did reveal intraoral abscess. This was drained utilizing 18-gauge needle puncture. There was output of foul-smelling purulent bloody drainage. He is afebrile, vital signs. Patient has been taking penicillin for 3 days we'll switch to clindamycin. He is given pain medication here in the emergency department does report improvement of symptoms. He'll be discharged to follow-up with his dentist as planned. He is instructed to follow up with his primary care physician for recheck in 1-2 days. Return parameters were discussed in detail. He verbalizes understanding and agrees with this plan. Disposition Clinical Impression: Dental abscess Disposition: HOME SELF-CARE Condition: Good Instructions (If sedation given, give patient instructions): Dental Abscess (ED) Additional Instructions: Complete antibiotic prescription and full. Take home medications for pain as directed. Follow-up through primary care physician for recheck in 1-2 days. Follow-up with dentistry as you have planned. Return to the emergency department immediately for any new, worsening, or concerning symptoms. Prescriptions: Clindamycin HCl [Cleocin] 450 mg PO Q8H #90 cap Is patient prescribed a controlled substance at d/c from ED?: No Referrals: Brian De Anda MD [Primary Care Provider] - 1-2 days Time of Disposition: 23:45
[2018-11-24 00:04] VITALS: BP 133/80; PULSE 76
== END 2018-11-24 00:04 | disposition home or self-care (01) ==
LOC: EC 22:35
DX: K04.7 Periapical abscess without sinus (principal); F17.200 Nicotine dependence, unspecified, uncomplicated
CPT/HCPCS: 99283; 41800; 96372 ×2; J2270; J1885

== ENCOUNTER → 2024-01-18 | Outpatient (CLI) | payer OTHER ==
--- NOTE | 2024-01-18 11:19 | CA ---
Transthoracic Echo Report Name: Mao Gonzáles Age: 28 Gender: M : 1995 Exam Date: 01/18/2024 08:47 Exam Location: [facility] Ht (in): 70 Wt (lb): 275 Ordering Physician: Stephani Lemus MD Attending/Referring Phys: Viola Camara [facility] [place] Rachel Jimenez RDCS Procedure CPT: Indications: R00.2 palpitations Cardiac Hx: smoker Technical Quality: Good Contrast 1: Total Dose (mL): Contrast 2: Total Dose (mL): MEASUREMENTS (Male / Female) Normal Values 2D ECHO LV Diastolic Diameter PLAX 4.7 cm 4.2 - 5.9 / 3.9 - 5.3 cm LV Systolic Diameter PLAX 2.9 cm IVS Diastolic Thickness 1.0 cm 0.6 - 1.0 / 0.6 - 0.9 cm LVPW Diastolic Thickness 0.9 cm 0.6 - 1.0 / 0.6 - 0.9 cm LV Relative Wall Thickness 0.4 RV Internal Dim ED PLAX 3.3 cm LA Systolic Diameter LX 3.7 cm 3.0 - 4.0 / 2.7 - 3.8 cm LV Diastolic Volume MOD 4C 172.2 cm??? LV Systolic Volume MOD 4C 71.1 cm??? LV Ejection Fraction MOD 4C 58.7 % LV Cardiac Index MOD 4C 2669.2 cm???/min???m??? LV Diastolic Length 4C 8.3 cm LV Systolic Length 4C 6.8 cm LV Diastolic Volume MOD 2C 102.2 cm??? LV Systolic Volume MOD 2C 39.3 cm??? LV Ejection Fraction MOD 2C 61.5 % LV Cardiac Index MOD 2C 1661.3 cm???/min???m??? LV Diastolic Length 2C 8.1 cm LV Systolic Length 2C 6.5 cm LA Volume 46.3 cm??? 18 - 58 / 22 - 52 cm??? LA Volume Index 18.3 cm???/m??? 16 - 28 cm???/m??? M-MODE Aortic Root Diameter MM 2.8 cm AV Cusp Separation MM 2.1 cm DOPPLER AV Peak Velocity 118.0 cm/s AV Peak Gradient 5.6 mmHg MV Area PHT 2.8 cm??? Mitral E Point Velocity 102.5 cm/s Mitral A Point Velocity 81.4 cm/s Mitral E to A Ratio 1.3 MV Deceleration Time 269.6 ms FINDINGS Left Ventricle Left ventricular ejection fraction is estimated at 55-60 %. Left ventricular cavity size normal. Left ventricular wall thickness normal. Normal left ventricular wall motion. Right Ventricle Mild right ventricular dilatation. Unable to estimate the right ventricular systolic pressure.prominent moderator band in right ventricle (normal variant). Right Atrium Normal right atrial size. No right atrial thrombus or mass seen. Left Atrium Normal left atrial size. No left atrial thrombus or mass present. Mitral Valve Structurally normal mitral valve. No mitral stenosis, regurgitation or prolapse. Aortic Valve Trileaflet aortic valve. No aortic valve stenosis or regurgitation. Tricuspid Valve Structurally normal tricuspid valve. No tricuspid stenosis, or prolapse.mild tricuspid regurgitation. Pulmonic Valve Structurally normal pulmonic valve. No pulmonic regurgitation. Pericardium No pericardial or pleural effusion. Aorta Normal size aortic root and proximal ascending aorta. CONCLUSIONS 1. Normal left ventricular size and systolic function 2. Mild tricuspid regurgitation Previewed by: Dr. Agnieszka Harkins MD (Electronically Signed) Final Date: 18 January 2024 11:18
== END | disposition home or self-care (01) ==
LOC: RADECHMAIN 08:36
PROVIDERS: ATTEND Family Medicine
DX: R00.2 Palpitations (principal)
CPT/HCPCS: 93306

== ENCOUNTER → 2024-03-04 | Outpatient (CLI) | payer OTHER ==
--- NOTE | 2024-03-13 07:50 | P.CEMON ---
7 Day Event monitor note: Patient wore an event monitor for 7 days from 03/04/2024 through 03/10/2024. Findings: Patient's baseline heart rate was normal sinus rhythm. There were no signficant atrial fibrillation, atrial flutter, or ventricular tachycardia episodes. There were no significant pauses greater than 2 seconds. There were 7 patient activated events including dizziness and skipped beats with 5 of these corresponding with PVCs There was 5% PVC burden Conclusions: 7 day event monitor showing normal sinus rhythm and frequent PVCs representing 5% PVC burden. Patient activated events of skipped beats predominantly corresponding with PVCs.
--- NOTE | 2024-03-14 09:06 | EM ---
7 Day Event monitor note: Patient wore an event monitor for 7 days from 03/04/2024 through 03/10/2024. Findings: Patient's baseline heart rate was normal sinus rhythm. There were no significant atrial fibrillation, atrial flutter, or ventricular tachycardia episodes. There were no significant pauses greater than 2 seconds. There were 7 patient activated events including dizziness and skipped beats with 5 of these corresponding with PVCs There was 5% PVC burden Conclusions: 7 day event monitor showing normal sinus rhythm and frequent PVCs representing 5% PVC burden. Patient activated events of skipped beats predominantly corresponding with PVCs. MTDD
== END | disposition home or self-care (01) ==
LOC: RADECHMAIN 07:33
PROVIDERS: ATTEND Family Medicine
DX: I49.3 Ventricular premature depolarization (principal); R00.2 Palpitations
CPT/HCPCS: 93270